=== PATIENT | female | born 1950 | race Caucasian/White ===

== ENCOUNTER 2018-06-04 08:41 | Day surgery (SDC) | payer OTHER ==
[~2018-06-04] VITALS: Ht 160 cm; Wt 62.1 kg
[2018-06-04] MEDS ORDERED: CICLOPIROX (09:50)
[2018-06-04] MEDS ORDERED: LORATADINE (09:50)
[2018-06-04] MEDS ORDERED: POTASSIUM CHLORIDE 16 MEQ (09:50)
[2018-06-04] MEDS ORDERED: FOLIC ACID (09:50)
[2018-06-04] MEDS ORDERED: OLOPATADINE (09:50)
[2018-06-04] MEDS ORDERED: RESTASIS (09:50)
[2018-06-04] MEDS ORDERED: CEVIMELINE (09:50)
[2018-06-04] MEDS ORDERED: SIMVASTATIN (09:50)
[2018-06-04] MEDS ORDERED: METHOTREXATE (09:50)
[2018-06-04] MEDS ORDERED: LIDOCAINE VISCOUS (09:50)
[2018-06-04] MEDS ORDERED: OMEPRAZOLE (09:50)
[2018-06-04] MEDS ORDERED: HYDROCHLOROTHIAZIDE (09:50)
[2018-06-04] MEDS ORDERED: GABAPENTIN (09:50)
[2018-06-04] MEDS ORDERED: MELOXICAM (09:50)
[2018-06-04] MEDS ORDERED: ERYTHROMYCIN 0.5% (09:50)
[2018-06-04] MEDS ORDERED: VITAMIN D3 (09:50)
[2018-06-04 09:55] VITALS: Ht 160 cm; Wt 62.1 kg
--- NOTE | 2018-06-04 10:45 | PREAC ---
Date/Time of Note Date/Time of Note DATE: 06/04/18 TIME: 10:43 Anesthesia Eval and Record Evaluation Time Pre-Procedure Interview DATE: 06/04/18 TIME: 10:43 Age 68 Sex female NPO: 8 hrs Preoperative diagnosis Screening Planned procedure Colonoscopy Past Medical History Past Medical History: Includes Cardio: HTN, Dyslipidemia Musculoskeletal: Rheumatoid arthritis Surgery & Anesthesia Issues No known issue Meds Anticoagulation: No Beta Joseph within 24 hr: No Reason Beta Joesph not given: Pt. not on B-Jsoeph Reported Medications [Omeprazole] No Conflict Check 06/04/18 [Simvastatin] No Conflict Check 06/04/18 [Olopatadine] No Conflict Check 06/04/18 [Restasis] No Conflict Check 06/04/18 [Vitamin D3] No Conflict Check 06/04/18 [Potassium Cl 16 Meq] No Conflict Check 06/04/18 [Methotrexate] No Conflict Check 06/04/18 [Meloxicam] No Conflict Check 06/04/18 [Ciclopirox] No Conflict Check 06/04/18 [Cevimeline] No Conflict Check 06/04/18 [Erythromycin 0.5%] No Conflict Check 06/04/18 [Loratadine] No Conflict Check 06/04/18 [Lidocaine Viscous] No Conflict Check 06/04/18 [Hydrochlorothiazide] No Conflict Check 06/04/18 [Folic Acid] No Conflict Check 06/04/18 [Gabapentin] No Conflict Check 06/04/18 Meds reviewed: Yes Allergies Coded Allergies: No Known Allergy (Unverified , 06/04/18) Allergies Reviewed: Yes Labs/Studies Labs Reviewed: Reviewed by anesthesiologist test: N/A Studies: ECG (n/a), CXR (n/a) Pre-procedure Exam Airway: Adequate mouth opening, Adequate thyromental dist Mallampati: Mallampati II Teeth: Normal Lung: Normal Heart: Normal ASA Physical Status ASA physical status: 3 Emergency: None Planned Anesthetic General/MAC: MAC Planned Pain Management Parenteral pain med Pre-operative Attestations Prior to commencing anesthesia and surgery, the patient was re-evaluated, there was verification of: *The patient's identity *The results of appropriate recent lab work and preoperative vital signs *The above evaluation not changing prior to induction *Anesthetic plan, risk benefits, alternative and complications discussed with patient/family; questions answered; patient/family understands, accepts and wishes to proceed. REAGAN ANAYA MD Jun 04, 2018 10:45
[2018-06-04 10:57] VITALS: BP 165/79; PULSE 56; RESP 31
[2018-06-04] MEDS ORDERED: PROPOFOL 20 ML ONE (11:06)
--- NOTE | 2018-06-04 11:12 | PAC ---
Date/Time of Note Date/Time of Note DATE: 06/04/18 TIME: 11:12 Post-Anesthesia Notes Post-Anesthesia Note Last documented vital signs T: 98.1 Activity: WNL Respiratory function: WNL Cardiovascular function: WNL Mental status: Baseline Pain reasonably controlled: Yes Hydration appropriate: Yes Nausea/Vomiting absent: Yes REAGAN ANAYA MD Jun 04, 2018 11:12
[2018-06-04 11:35] VITALS: BP 163/81; RESP 12
== END 2018-06-04 12:15 | disposition home or self-care (01) ==
LOC: GIL 08:41
PROVIDERS: ATTEND Internal Medicine Gastroenterology
DX: Z12.11 Encounter for screening for malignant neoplasm of colon (principal); K64.4 Residual hemorrhoidal skin tags